=== PATIENT | male | born 1970 | race Caucasian/White ===

== ENCOUNTER 2021-04-24 15:05 | Inpatient (IN) | payer BC ==
[2021-04-24] MEDS ORDERED: Ondansetron 4 MG Tab.DIS PO ONE (15:50)
[2021-04-24] MEDS ORDERED: Lactated Ringers 1,000 ML IV ONE (15:51)
[2021-04-24] MEDS ORDERED: HYDROmorphone 1 MG/ML Syringe IVPUSH ONE ×2 (15:57→18:51)
[2021-04-24] MEDS: HYDROmorphone 1 MG/ML Syringe ONE (16:13)
[2021-04-24] MEDS: Ondansetron 4 MG Tab.DIS ONE (16:13)
--- NOTE | 2021-04-24 16:47 | EDM.PDOC ---
ED HPI GENERAL MEDICAL PROBLEM - General Chief Complaint: Abdominal Pain Stated Complaint: STOMACH PAIN Time Seen by Provider: 04/24/21 16:05 Source of Information: Reports: Patient, Old Records, RN History Limitations: Reports: No Limitations - History of Present Illness INITIAL COMMENTS - FREE TEXT/NARRATIVE: 50 yo male here with R sided abdominal pain that started last night after eating and went away by bedtime. This morning he ate a hard boiled egg and had a mild resurgence of the pain. For lunch he had pasta salad and shortly after that his pain returned worse than ever. Has had vomiting also. No hematemesis. No change in stools or fever. No pHx of any abdominal surgeries. 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) (none) Right Abdominal Pain Score (Numeric/FACES): 8 - Related Data Allergies Allergy/AdvReac Type Severity Reaction Status Date / Time No Known Allergies Allergy Verified 04/24/21 15:24 Home Meds: Home Meds Aspirin [Ecotrin EC] 81 mg PO DAILY 04/24/21 [History] Fish Oil/[place]-3 Fatty Acids [Fish Oil 1,000 MG] 1 cap PO DAILY 04/24/21 [History] Social & Family History - Caffeine Use Caffeine Use: Reports: None - Recreational Drug Use Recreational Drug Use: No ED ROS GENERAL - Review of Systems Review Of Systems: See Below Constitutional: Reports: No Symptoms HEENT: Reports: No Symptoms Respiratory: Reports: No Symptoms Cardiovascular: Reports: No Symptoms GI/Abdominal: Reports: Abdominal Pain, Nausea, Vomiting. Denies: Black Stool, Bloody Stool, Constipation, Diarrhea, Distension, Hematemesis, Hematochezia, Melena : Reports: No Symptoms Musculoskeletal: Reports: No Symptoms Skin: Reports: No Symptoms Neurological: Reports: No Symptoms Psychiatric: Reports: No Symptoms ED EXAM, GI/ABD - Physical Exam Exam: See Below Exam Limited By: No Limitations General Appearance: Alert, WD/WN, Mild Distress Eyes: Bilateral: Normal Appearance Ears: Normal External Exam, Normal Canal, Hearing Grossly Normal, Normal TMs Nose: Normal Inspection, No Blood Throat/Mouth: Normal Inspection, Normal Lips, Normal Oropharynx, Normal Voice, No Airway Compromise Head: Atraumatic, Normocephalic Neck: Normal Inspection Respiratory/Chest: No Respiratory Distress, Lungs Clear, Normal Breath Sounds, No Accessory Muscle Use Cardiovascular: Regular Rate, Rhythm, No Edema GI/Abdominal Exam: Normal Bowel Sounds, Soft, No Distention, Tender (RLQ and RUQ tenderness). No: Non-Tender, Distended, Guarding, Rigid, Rebound Extremities: Normal Inspection, Normal Range of Motion, Non-Tender, No Pedal Edema Neurological: Alert, Oriented, CN II-XII Intact, Normal Cognition, No Motor/Sensory Deficits Psychiatric: Normal Affect, Normal Mood Skin Exam: Warm, Dry, Intact, Normal Color, No Rash Course - Vital Signs Text/Narrative:: Dr. Parikh called @ 182h Last Recorded V/S: Last Vital Signs Temp 35.6 C L 04/24/21 15:20 Pulse 54 L 04/24/21 17:45 Resp 13 04/24/21 16:17 BP 165/85 H 04/24/21 17:45 Pulse Ox 99 04/24/21 17:45 - Orders/Labs/Meds Orders: Active Orders 24 hr Category Date Time Status Abdomen Pelvis w Cont [CT] Stat Exams 04/24/21 16:38 Taken Iopamidol [Isovue-300 (61%)] Med 04/24/21 17:15 Active 100 ml IV . DIRECTED Sodium Chloride 0.9% [Normal Saline] 100 ml Med 04/24/21 17:15 Active IV ASDIRECTED Medication Orders Sodium Chloride (Normal Saline) 100 mls @ 3.5 mls/sec IV ASDIRECTED HODA Last Admin: 04/24/21 17:20 Dose: 3 mls/sec Documented by: MERI Iopamidol (Iopamidol 612 Mg/Ml 100 Ml Bottle) 100 ml IV . DIRECTED HODA Last Admin: 04/24/21 17:20 Dose: 100 ml Documented by: MERI Labs: Laboratory Tests 04/24/21 04/24/21 04/24/21 Range/Units 16:07 16:07 16:07 WBC 12.3 H (4.5-11.0) K/uL RBC 5.60 (4.30-5.90) M/uL Hgb 16.0 H (12.0-15.0) g/dL Hct 47.9 (40.0-54.0) % MCV 86 (80-98) fL MCH 29 (27-31) pg MCHC 33 (32-36) % Plt Count 388 (150-400) K/uL Sodium 140 (140-148) mmol/L Potassium 3.4 L (3.6-5.2) mmol/L Chloride 99 L (100-108) mmol/L Carbon Dioxide 25 (21-32) mmol/L Anion Gap 19.4 H (5.0-14.0) mmol/L BUN 13 (7-18) mg/dL Creatinine 1.1 (0.8-1.3) mg/dL Est Cr Clr Drug Dosing TNP Estimated GFR (MDRD) > 60 (>60) Glucose 113 H (74-106) mg/dL Calcium 9.3 (8.5-10.1) mg/dL Total Bilirubin 0.8 (0.2-1.0) mg/dL AST 20 (15-37) U/L ALT 32 (12-78) U/L Alkaline Phosphatase 72 (46-116) U/L C-Reactive Protein 0.20 (0.0-0.3) mg/dL Total Protein 8.4 H (6.4-8.2) g/dL Albumin 4.4 (3.4-5.0) g/dL Globulin 4.0 H (2.3-3.5) g/dL Albumin/Globulin Ratio 1.1 L (1.2-2.2) Lipase 123 (73-393) U/L Meds: Medications Generic Name Dose Route Start Last Admin Trade Name Freq PRN Reason Stop Dose Admin Sodium Chloride 100 mls @ 3.5 mls/sec 04/24/21 17:15 04/24/21 17:20 Normal Saline IV 3 mls/sec ASDIRECTED HODA Administration Iopamidol 100 ml 04/24/21 17:15 04/24/21 17:20 Iopamidol 612 Mg/Ml 100 Ml Bottle IV 100 ml . DIRECTED HODA Administration Discontinued Medications Generic Name Dose Route Start Last Admin Trade Name Freq PRN Reason Stop Dose Admin Hydromorphone HCl Confirm 04/24/21 15:58 04/24/21 16:13 Hydromorphone 1 Mg/Ml Syringe Administered 04/24/21 15:59 1 mg Dose Administration 1 mg .ROUTE .STK-MED ONE Hydromorphone HCl 1 mg 04/24/21 15:57 04/24/21 16:08 Hydromorphone 1 Mg/Ml Syringe IVPUSH 04/24/21 15:58 1 mg ONETIME ONE Administration Lactated Ringer's 1,000 mls @ 1,000 mls/hr 04/24/21 15:51 04/24/21 16:10 Ringers, Lactated IV 04/24/21 16:50 1,000 mls/hr BOLUS ONE Administration Ondansetron HCl Confirm 04/24/21 15:57 04/24/21 16:13 Ondansetron 4 Mg Tab.Dis Administered 04/24/21 15:58 4 mg Dose Administration 4 mg .ROUTE .STK-MED ONE Ondansetron HCl 4 mg 04/24/21 15:50 04/24/21 16:07 Ondansetron 4 Mg Tab.Dis PO 04/24/21 15:51 4 mg ONETIME ONE Administration Sodium Chloride 10 ml 04/24/21 17:11 04/24/21 17:20 Sodium Chloride 0.9% 10 Ml Syringe FLUSH 04/24/21 17:12 10 ml ONETIME ONE Administration - Radiology Interpretation Free Text/Narrative:: CT abdomen and pelvis with IV contrast- IMPRESSION: Acute appendicitis. No gross perforation, although impending focal wall dehiscence is difficult to exclude. Mild gastric antral wall thickening could be related to underdistention or may represent PUD. Old granulomatous disease. An enlarged prostate. Dictated by Jordy Pizarro MD @ 04/24/2021 6:20:[address] Results Date: 04/24/21 CT Results Time: 18:24 Departure - Departure Time of Disposition: 18:30 Disposition: Admitted As Inpatient 65 Condition: Fair Clinical Impression: Acute appendicitis - Discharge Information Referrals: Ezra Rodriguez MD [Primary Care Provider] - Forms: ED Department Discharge Sepsis Event Note (ED) - Evaluation Sepsis Screening Result: No Definite Risk - Focused Exam Vital Signs: Vital Signs Temp Pulse Resp BP Pulse Ox 04/24/21 17:45 54 L 165/85 H 99 04/24/21 16:17 13 166/87 H 96 04/24/21 15:20 35.6 C L 56 L 16 180/93 H 99 - My Orders Last 24 Hours: My Active Orders 04/24/21 16:38 Abdomen Pelvis w Cont [CT] Stat 04/24/21 17:15 Iopamidol [Isovue-300 (61%)] 100 ml IV . DIRECTED Sodium Chloride 0.9% [Normal Saline] 100 ml IV ASDIRECTED - Assessment/Plan Last 24 Hours: My Active Orders 04/24/21 16:38 Abdomen Pelvis w Cont [CT] Stat 04/24/21 17:15 Iopamidol [Isovue-300 (61%)] 100 ml IV . DIRECTED Sodium Chloride 0.9% [Normal Saline] 100 ml IV ASDIRECTED
[2021-04-24] MEDS ORDERED: Sodium Chloride 0.9% 10 ML Syringe FLUSH ONE (17:11)
[2021-04-24] MEDS ORDERED: Iopamidol 612 MG/ML 100 ML Bottle IV SCH (17:15)
[2021-04-24] MEDS ORDERED: Sodium Chloride 0.9% 100 ML IV SCH (17:15)
--- NOTE | 2021-04-24 18:24 | CRLCT ---
INDICATION: Right abdominal pain TECHNIQUE: CT abdomen and pelvis acquired with IV contrast. 100 mL of Isovue-300 administered. COMPARISON: None available FINDINGS: Lower chest: Minor compressive changes. Left hilar lymph node calcifications consistent with old granulomatous disease. A small decompressed hiatal hernia. Liver: A small calcified right hepatic granuloma. Spleen: Calcified splenic granulomas. Pancreas: Unremarkable. Gallbladder and bile ducts: A moderately distended gallbladder. Slight prominence of central intrahepatic biliary ducts without significant extrahepatic dilatation, which could be physiologic. Adrenal glands: Unremarkable. Kidneys: Unremarkable. GI tract: A dilated fluid-filled appendix measuring up to 1.3 cm in diameter, with a proximal appendicolith and mild periappendiceal stranding, consistent with acute appendicitis. A focus of gas along the anterior proximal appendiceal wall is intraluminal, although regional appendiceal wall enhancement is indistinct. No periappendiceal collection. Mild gastric antral wall thickening versus underdistention. No bowel obstruction. No significant pericolonic changes. Vascular structures: Unremarkable. Lymph nodes: Unremarkable. Miscellaneous: Small free fluid in the posterior inferior pelvis. No free air. A small fat containing umbilical hernia. Pelvic Organs: A mildly enlarged prostate. No discrete bladder abnormality seen. Bones: Left L5 spondylolysis. Degenerative changes in the spine. IMPRESSION: Acute appendicitis. No gross perforation, although impending focal wall dehiscence is difficult to exclude. Mild gastric antral wall thickening could be related to underdistention or may represent PUD. Old granulomatous disease. An enlarged prostate. Dictated by Jordy Pizarro MD @ 04/24/2021 6:20:47 PM Please note that all CT scans at this facility use dose modulation, iterative reconstruction, and/or weight-based dosing when appropriate to reduce radiation dose to as low as reasonably achievable. Dictated by: Jordy Pizarro MD @ 04/24/2021 18:22:37 (Electronically Signed)
[2021-04-24] MEDS ORDERED: Ondansetron 4 MG/2 ML SDV IVPUSH PRN (19:01)
[2021-04-24] MEDS ORDERED: Promethazine 25 MG/ML SDV IV PRN (19:05)
[2021-04-24] MEDS ORDERED: diphenhydrAMINE 25 MG Cap PO PRN (19:09)
[2021-04-24] MEDS ORDERED: diphenhydrAMINE 50 MG/ML SDV IV PRN (19:10)
[2021-04-24] MEDS ORDERED: Nicotine 14 MG/24 Hr Patch TRDERM PRN (19:10)
[2021-04-24] MEDS ORDERED: Morphine 2 MG/ML SYRINGE IV PRN (19:12)
[2021-04-24] MEDS ORDERED: fentaNYL 100 MCG/2 ML SDV IV PRN (19:13)
[2021-04-24] MEDS ORDERED: Scopolamine 1.5 MG Transdermal Patch TOP SCH (20:00)
[2021-04-24] MEDS ORDERED: Sodium Chloride 0.9% 50 ML ONE (20:15)
[2021-04-24] MEDS: Piperacillin/Tazobactam/Dext 50 ML IV SCH (20:40)
[2021-04-24 21:47] LABS: CORONAVIRUS COVID-19 NAA NEGATIVE (NEGATIVE)
[2021-04-25] MEDS ORDERED: Sodium Chloride 0.9% 50 ML ONE (01:09)
[2021-04-25] MEDS: Piperacillin/Tazobactam/Dext 50 ML IV SCH (01:23)
[2021-04-25] MEDS: Sodium Chloride 0.9% 1,000 ML IV SCH ×2 (01:23→10:11)
[2021-04-25] MEDS ORDERED: Bupivacaine 0.5%/EPINEPHrine 1:200,000 50 ML MDV ONE (07:00)
[2021-04-25] MEDS: HYDROmorphone 1 MG/ML Syringe ONE (08:25)
[2021-04-25] MEDS: Ondansetron 4 MG Tab.DIS ONE (08:26)
[2021-04-25] MEDS ORDERED: fentaNYL 250 MCG/5 ML SDV ONE (08:33)
[2021-04-25] MEDS ORDERED: Ondansetron 4 MG/2 ML SDV ONE (08:34)
[2021-04-25] MEDS ORDERED: Glycopyrrolate 0.2 MG/ML 5 ML MDV ONE (08:34)
[2021-04-25] MEDS ORDERED: Rocuronium 50 MG/5 ML Vial ONE (08:34)
[2021-04-25] MEDS ORDERED: Succinylcholine 200 MG/10 ML MDV ONE (08:34)
[2021-04-25] MEDS ORDERED: Dexamethasone 4 MG/ML SDV ONE (08:34)
[2021-04-25] MEDS ORDERED: Propofol 200 MG/20 ML SDV ONE (08:34)
[2021-04-25] MEDS: Piperacillin/Tazobactam/Dext 3.375 GM in Premix Bag 1 BAG IV SCH ×3 (08:34→19:52)
[2021-04-25] MEDS ORDERED: Neostigmine Methylsulfate 1 MG/ML 5 ML Syringe ONE (08:34)
[2021-04-25] MEDS: CHECK PATCH TOP SCH (09:10)
--- NOTE | 2021-04-25 11:47 | PN ---
DATE OF SERVICE: 04/25/2021 SUBJECTIVE: Patient doing well, is unchanged overnight. No specific concerns at this time. OBJECTIVE: VITAL SIGNS: Stable. ABDOMEN: Still pain with palpation. ASSESSMENT/PLAN: To the operating room for laparoscopic appendectomy. Please see history and physical from 04/24/2021 for risk discussion. Of note, we did review these risks again, benefits, alternatives, and limitations. Singh Parikh MD /[id number]
[2021-04-25] MEDS: Acetaminophen/HYDROcodone 325-5 MG Tab PO PRN ×3 (16:39→22:40)
--- NOTE | 2021-04-25 18:05 | OR ---
DATE OF PROCEDURE: 04/25/2021 SURGEON: Singh Parikh MD PROCEDURE: Laparoscopic appendectomy. FINDINGS: 1. Nonruptured appendicitis. 2. No abscess. 3. Mild peritonitis. COMPLICATIONS: None. HR DIRECTOR: None. ANESTHESIA: General. RISKS: Risks, benefits, alternatives, and limitations including, but not limited to infection, bleeding, perforation, false positives and false negatives were explained to the patient and he wished to proceed. We also discussed perforation, possibility of open surgery, abscess, sepsis, and other risks not listed here. PROCEDURE IN DETAIL: The patient was placed in supine position. A curvilinear supraumbilical incision was made. A Veress needle was used to enter the abdomen without abnormality. A drop test was performed without abnormality. The abdomen was subsequently insufflated. This was followed by 2.5 mm trocars under direct visualization. The appendix was readily identified. This was noted to be consistent with appendicitis but nonruptured without evidence of abscess. This was transected with 2 mayers load jose guadalupe. This was delivered through the umbilical port. The abdomen was thoroughly irrigated with greater than 1 L of irrigation. The liquid was removed. The abdomen was inspected for additional injury or abnormality. None was noted. The air was removed. The wounds were closed with 3-0 Vicryl and 4-0 Vicryl in interrupted running fashion. Dermabond was applied. The patient tolerated the procedure well. Singh Parikh MD /[id number]
--- NOTE | 2021-04-25 19:45 | CONS ---
DATE OF SERVICE: 04/24/2021 REFERRING PHYSICIAN: CONSULTING PHYSICIAN: Singh Parikh MD REASON FOR CONSULTATION: Abdominal pain. HISTORY OF PRESENT ILLNESS: A 50-year-old male with right abdominal pain over the last 24 to 48 hours. This has recurred. He has nausea and vomiting associated with this. This is a new problem for him. Pain described as 3 to 4/10, modified not by position. SOCIAL HISTORY: He is not a smoker. FAMILY HISTORY: Noncontributory. REVIEW OF SYSTEMS: GENERAL: Appropriate for condition. HEENT: No symptoms. RESPIRATORY: No recent respiratory issues. CARDIOVASCULAR: No history of myocardial infarction. GASTROINTESTINAL: As above. GENITOURINARY: No symptoms. MUSCULOSKELETAL: No symptoms. NEUROLOGICAL: No reported deficits. PSYCHIATRIC: No acute anxiety. PHYSICAL EXAMINATION: VITAL SIGNS: Stable. HEENT: Pupils are equal. NECK: Supple. LUNGS: Clear. CARDIOVASCULAR: Regular rhythm and rate. ABDOMEN: Pain with palpation, right lower quadrant. Minimal guarding. EXTREMITIES: Full range of motion. NEUROLOGICAL: Oriented x3. PSYCHIATRIC: No gross depression. LABORATORY RESULTS: Show white blood cell count of 12,000. IMAGING: I did review the CT scan, which shows acute appendicitis. PLAN: The patient will be admitted to the hospital, started on antibiotics, and undergo laparoscopic appendectomy in the a.m. We discussed risks, benefits, alternatives, and limitations including but not limited to infection, bleeding, perforation, injury to abdominal structures, and other risks not listed here. The patient understands these risks and wishes to proceed. Singh Parikh MD /[id number]
[2021-04-26] MEDS: Piperacillin/Tazobactam/Dext 3.375 GM in Premix Bag 1 BAG IV SCH ×2 (02:05→07:15)
[2021-04-26] MEDS: Acetaminophen/HYDROcodone 325-5 MG Tab PO PRN (07:15)
--- NOTE | 2021-04-26 08:01 | OR ---
DATE OF PROCEDURE: 04/25/2021 SURGEON: Singh Parikh MD PROCEDURES: 1. Transversus abdominis plane blocks bilaterally. 2. Rectus sheath blocks bilaterally. COMPLICATION: None. CARDIAC NURSE: None. RISKS: Risks, benefits, alternatives, and limitations including, but not limited to infection, bleeding, and injury to abdominal structures were explained to the patient who wished to proceed. PROCEDURE IN DETAIL: The patient was placed in supine position. The right transversus plane was identified first. 20% of the solution was injected under direct visualization. This was performed on the opposite side. Bilateral rectus sheaths were injected with 20% of the solution respectively in each location. At no point did the needle blindly advance nor has it passed the peritoneum. The patient tolerated the procedure well. Singh Parikh MD /[id number]
[2021-04-26] MEDS: CHECK PATCH TOP SCH (11:05)
--- NOTE | 2021-04-26 11:48 | PN ---
DATE OF SERVICE: 04/26/2021 SUBJECTIVE: The patient is doing very well. Pain is controlled. No nausea, vomiting, shortness of breath, or chest pain. OBJECTIVE: VITAL SIGNS: Stable. He is afebrile per nursing report. ABDOMEN: Looking good. Incision healing well. No signs of infection. ASSESSMENT AND PLAN: The patient will be discharged today. Please see discharge summary for further details. Singh Parikh MD /[id number]
--- NOTE | 2021-04-26 13:12 | DISCH ---
DISCHARGE DIAGNOSIS: Status post appendectomy. SUMMARY OF HOSPITAL COURSE: This is a pleasant 50-year-old male who underwent uneventful laparoscopic appendectomy. Prior to discharge, his pain was well controlled. He had no nausea, vomiting, shortness of breath, or chest pain. DISCHARGE MEDICATIONS: Please see MAR, but include [place] for pain. FOLLOWUP: With Surgery in 7 to 14 days. ACTIVITY: No lifting more than 30 pounds for 30 days. /[id number]
== END 2021-04-26 09:30 | disposition home or self-care (01) | DRG 225 ==
LOC: JP.ED 15:05 → JP.MS 18:45
PROVIDERS: ADMIT Surgery; ATTEND Surgery
PROC: 0DTJ4ZZ Resection of Appendix, Percutaneous Endoscopic Approach (ICD-10-PCS; principal; 2021-04-25)
PROC: 3E0T3BZ Introduction of Anesthetic Agent into Peripheral Nerves and Plexi, Percutaneous Approach (ICD-10-PCS; 2021-04-25)
DX: K35.33 Acute appendicitis with perforation, localized peritonitis, and gangrene, with abscess (principal); Z79.82 Long term (current) use of aspirin; Z79.899 Other long term (current) drug therapy
CPT/HCPCS: 0241U; 36415; 74177; 80048; 80053; 83690; 85025; 85027; 86140; 88304; 96374; 99284; 99285-25; A9270-GY; J0171; J0330; J1100; J1170; J2405; J2543; J2704; J2710; J2795; J3010; J3490; J7030; J7120; Q9967

== ENCOUNTER 2022-07-14 06:29 | Day surgery (SDC) | payer BC ==
[2022-07-14] MEDS ORDERED: Sodium Chloride 0.9% 1,000 ML IV SCH (07:30)
[2022-07-14] MEDS ORDERED: Propofol 200 MG/20 ML SDV ONE (07:58)
[2022-07-14] MEDS ORDERED: Midazolam 1 MG/ML 2 ML SDV ONE (07:58)
[2022-07-14] MEDS ORDERED: fentaNYL 100 MCG/2 ML SDV ONE (07:58)
== END 2022-07-14 09:39 | disposition home or self-care (01) ==
LOC: JP.SDS 06:29
PROVIDERS: ATTEND Surgery
DX: Z12.11 Encounter for screening for malignant neoplasm of colon (principal); Z80.0 Family history of malignant neoplasm of digestive organs
CPT/HCPCS: 45378; J2250; J2704; J3010; J7030